=== PATIENT | male | born 1995 | race Caucasian/White ===

== ENCOUNTER 2019-09-01 14:12 | Emergency (ER) | payer OTHER ==
[~2019-09-01] VITALS: Ht 182.9 cm; Wt 77.3 kg
[2019-09-01 14:13] VITALS: BP 133/75
== END 2019-09-01 19:23 | disposition left against medical advice (07) ==
LOC: M ED 14:12
DX: Z53.21 Procedure and treatment not carried out due to patient leaving prior to being seen by health care provider (principal)